=== PATIENT | male | born 2000 | race Caucasian/White ===

== ENCOUNTER 2022-06-25 10:29 | Emergency (ER) | payer OTHER ==
--- OUTSIDE RECORDS SUMMARY | 2022-06-25 10:32 | XMS REPORT | Continuity of Care Document ---
:[address] [facility] t Address [address] [place] [address] [address]. [address]. [address] [place] [address] Care Team Providers Name Role Phone MICA CHILDERS Primary Care Physician Unavailable Salo PAL, Gia Everett Attending Clinician Unavailable OREN GUTIERREZ Attending Clinician Unavailable Only, Ang Db Test Attending Clinician Unavailable Oren Gutierrez MD Attending Clinician Doctor Unassigned, [place] Attending Clinician Unavailable JOAQUIN CRUZ Attending Clinician Unavailable MICA CHILDERS Attending Clinician Unavailable ANDRESSA RODRIGUEZ Attending Clinician Unavailable Payers Payer Name Policy Type Policy Number Effective Date Expiration Date S ource Problems Condition Condition Condition Status Onset Resolution Last Treating Co mments Source Name Details Category Date Date Treatment Clinician Date Acne Acne Disease Active 08-08 ity of 00:00: [address] Seasonal Seasonal Disease Active Unive rs allergies allergies ity of [facility] Allergies, Adverse Reactions, Alerts Allergy Allergy Status Severity Reaction(s) Onset Inactive Treating Comm ents Source Name Type Date Date Clinician NO KNOWN Drug Active Univers ALLERGIE Class ity of S [facility] Social History Social Habit Start Date Stop Date Quantity Comments Source Exposure to Yes [facility] SARS-CoV-2 [facility] (event) Branch Alcohol intake 2020-12-23 2020-12-23 [facility] of 00:00:00 00:00:00 non-drinker of [facility] alcohol [place] (finding) Tobacco use and 2018-08-08 2018-08-08 Never used Universit y of exposure 00:00:00 00:00:00 [facility] Sex Assigned At [birth year] Universit y of 00:00:00 00:00:00 [facility] Smoking Status Start Date Stop Date Source Never smoker [facility] Branch Medications Ordered Filled Start Stop Current Ordering Indication Dosage Frequency Signature Comments Components Source Medication Medication Date Date Medication? Clinician (SIG) Name Name don Yes [id number] 5mL Take 5 mL Univers mine-pseudo 8-10 by mouth 4 it y of ephedrine-D 00:00: (four) [facility] M (BROMFED 00 times Medical DM) 2-30-10 daily as Bran ch mg/5 mL needed for syrup Cough. methylPREDN 2020-0 Yes [id number] Take by Univers ISolone 4 8-10 mouth ity of mg tablets 00:00: [place]-INSTRU [place] 00 CTIONS. Medical follow Branch package directions bromphenira Yes [id number] 5mL Take 5 mL Univers mine-pseudo 8-10 by mouth 4 it y of ephedrine-D 00:00: (four) [facility] M (BROMFED 00 times Medical DM) 2-30-10 daily as Bran ch mg/5 mL needed for syrup Cough. methylPREDN 2020-0 Yes [id number] Take by Univers ISolone 4 8-10 mouth ity of mg tablets 00:00: SEE-INSTRU [place] 00 CTIONS. Medical follow Branch package directions bromphenira Yes [id number] 5mL Take 5 mL Univers mine-pseudo 8-10 by mouth 4 it y of ephedrine-D 00:00: (four) [facility] M (BROMFED 00 times Medical DM) 2-30-10 daily as Bran ch mg/5 mL needed for syrup Cough. methylPREDN 2020-0 Yes [id number] Take by Univers ISolone 4 8-10 mouth ity of mg tablets 00:00: SEE-INSTRU [place] 00 CTIONS. Medical follow Branch package directions MYORISAN Yes 30mg 30 mg 2 Uni vers mg capsule 3-20 (two) ity of 00:00: times [place] 00 daily. Medical Branch MYORISAN Yes 30mg 30 mg 2 Uni vers mg capsule 3-20 (two) ity of 00:00: times [place] 00 daily. Medical Branch MYORISAN Yes 30mg 30 mg 2 Uni vers mg capsule 3-20 (two) ity of 00:00: times [place] 00 daily. Medical Branch Immunizations Ordered Immunization Filled Immunization Date Status Commen ts Source Name Name Meningococcal 2020-04-04 Completed University of Polysaccharide 00:00:00 [place] [facility] (groups A, C, Y and Branc h W-135) conjugate vaccine (MCV4P) Influenza Virus 2020-04-04 Completed Universit y of Vaccine Quad .5 mL IM 00:00:00 [facility] 6+ MO Branch Meningococcal 2020-04-04 Completed University of Polysaccharide 00:00:00 [place] [facility] (groups A, C, Y and Branc h W-135) conjugate vaccine (MCV4P) Influenza Virus 2020-04-04 Completed Universit y of Vaccine Quad .5 mL IM 00:00:00 [facility] 6+ MO Branch Meningococcal 2020-04-04 Completed University of Polysaccharide 00:00:00 [place] [facility] (groups A, C, Y and Branc h W-135) conjugate vaccine (MCV4P) Influenza Virus 2020-04-04 Completed Universit y of Vaccine Quad .5 mL IM 00:00:00 [facility] 6+ MO Branch HPV9 2018-08-08 Completed University of 00:00:00 [facility] Branch HPV9 2018-08-08 Completed University of 00:00:00 [facility] Branch HPV9 2018-08-08 Completed University of 00:00:00 [facility] Branch HPV9 2018-04-11 Completed University of 00:00:00 [facility] Influenza Virus 2018-04-11 Completed Universit y of Vaccine Quad ID [id number] 00:00:00 [facility] Medical YRS Branch HPV9 2018-04-11 Completed University of 00:00:00 [facility] Influenza Virus 2018-04-11 Completed Universit y of Vaccine Quad ID [id number] 00:00:00 [facility] YRS Branch HPV9 2018-04-11 Completed University of 00:00:00 [facility] Influenza Virus 2018-04-11 Completed Universit y of Vaccine Quad ID [id number] 00:00:00 Yared as Medical [facility] Branch HPV9 2018-02-07 Completed University of 00:00:00 [facility] Menhibrix (HIB,MEN 2018-02-07 Completed Univjacquelyn clarky of CY-TT) 00:00:00 [facility] HPV9 2018-02-07 Completed University of 00:00:00 [facility] Menhibrix (HIB,MEN 2018-02-07 Completed Univer sity of CY-TT) 00:00:00 [facility] HPV9 2018-02-07 Completed University of 00:00:00 [facility] Menhibrix (HIB,MEN 2018-02-07 Completed Univer sity of CY-TT) 00:00:00 [facility] Menhibrix (HIB,MEN 2018-01-05 Completed Univer sity of CY-TT) 00:00:00 [facility] Menhibrix (HIB,MEN 2018-01-05 Completed Univer sity of CY-TT) 00:00:00 [facility] Menhibrix (HIB,MEN 2018-01-05 Completed Univer sity of CY-TT) 00:00:00 [facility] TDAP (ADACEL) VACCINE 2013-12-14 Completed Uni versity of 00:00:00 [facility] Meningococcal 2013-12-14 Completed University of Polysaccharide 00:00:00 [place] [facility] (groups A, C, Y and Branc h W-135) conjugate vaccine (MCV4P) TDAP (ADACEL) VACCINE 2013-12-14 Completed Uni versity of 00:00:00 [facility] Meningococcal 2013-12-14 Completed University of Polysaccharide 00:00:00 [place] [facility] (groups A, C, Y and Branc h W-135) conjugate vaccine (MCV4P) TDAP (ADACEL) VACCINE 2013-12-14 Completed Uni versity of 00:00:00 [facility] Meningococcal 2013-12-14 Completed University of Polysaccharide 00:00:00 [place] [facility] (groups A, C, Y and Branc h W-135) conjugate vaccine (MCV4P) Influenza Virus 2009-01-17 Completed Universit y of Vaccine Quad .5 mL IM 00:00:00 [facility] 6+ MO Branch Influenza Virus 2009-01-17 Completed Universit y of Vaccine Quad .5 mL IM 00:00:00 [facility] 6+ MO Branch Influenza Virus 2009-01-17 Completed Universit y of Vaccine Quad .5 mL IM 00:00:00 [facility] 6+ MO Branch Typhoid, Unspecified 2008-06-05 Completed Univ ersity of Formulation 00:00:00 [facility] Typhoid, Unspecified 2008-06-05 Completed Univ ersity of Formulation 00:00:00 [facility] Typhoid, Unspecified 2008-06-05 Completed Univ ersity of Formulation 00:00:00 [facility] DTAP 2005-05-13 Completed University of 00:00:00 [facility] MMR 2005-05-13 Completed University of 00:00:00 [facility] Polio (IPV/OPV) 2005-05-13 Completed Universit y of 00:00:00 [facility] DTAP 2005-05-13 Completed University of 00:00:00 [facility] MMR 2005-05-13 Completed University of 00:00:00 [facility] Polio (IPV/OPV) 2005-05-13 Completed Universit y of 00:00:00 [facility] DTAP 2005-05-13 Completed University of 00:00:00 [facility] MMR 2005-05-13 Completed University of 00:00:00 [facility] Polio (IPV/OPV) 2005-05-13 Completed Universit y of 00:00:00 [facility] DTAP 2002-11-14 Completed University of 00:00:00 [facility] DTAP 2002-11-14 Completed University of 00:00:00 [facility] DTAP 2002-11-14 Completed University of 00:00:00 [facility] MMR 2002-08-07 Completed University of 00:00:00 [facility] MMR 2002-08-07 Completed University of 00:00:00 [facility] MMR 2002-08-07 Completed University of 00:00:00 [facility] DTAP 2001 Completed University of 00:00:00 [facility] HIB 4 Dose Schedule 2001 Completed Unive rsity of 00:00:00 [facility] Hep B, Adol or Pedi 2001 Completed Unive rsity of Dosage 00:00:00 [facility] Polio (IPV/OPV) 2001 Completed Universit y of 00:00:00 [facility] DTAP 2001 Completed University of 00:00:00 [facility] HIB 4 Dose Schedule 2001 Completed Unive rsity of 00:00:00 [facility] Hep B, Adol or Pedi 2001 Completed Unive rsity of Dosage 00:00:00 [facility] Polio (IPV/OPV) 2001 Completed Universit y of 00:00:00 [facility] DTAP 2001 Completed University of 00:00:00 [place] [facility] [place] HIB 4 Dose Schedule 2001 Completed Unive rsity of 00:00:00 [place] [facility] Hep B, Adol or Pedi 2001 Completed Unive rsity of Dosage 00:00:00 [facility] Polio (IPV/OPV) 2001 Completed Universit y of 00:00:00 [facility] Branch DTAP 2001 Completed University of 00:00:00 [facility] HIB 4 Dose Schedule 2001 Completed Unive rsity of 00:00:00 [facility] Branch Hep B, Adol or Pedi 2001 Completed Unive rsity of Dosage 00:00:00 [facility] Polio (IPV/OPV) 2001 Completed Universit y of 00:00:00 [facility] DTAP 2001 Completed University of 00:00:00 [facility] HIB 4 Dose Schedule 2001 Completed Unive rsity of 00:00:00 [place] [facility] Hep B, Adol or Pedi 2001 Completed Unive rsity of Dosage 00:00:00 [facility] Polio (IPV/OPV) 2001 Completed Universit y of 00:00:00 [facility] DTAP 2001 Completed University of 00:00:00 [facility] HIB 4 Dose Schedule 2001 Completed Unive rsity of 00:00:00 [facility] Branch Hep B, Adol or Pedi 2001 Completed Unive rsity of Dosage 00:00:00 [facility] Polio (IPV/OPV) 2001 Completed Universit y of 00:00:00 [facility] Branch DTAP 2001 Completed University of 00:00:00 [facility] HIB 4 Dose Schedule 2001 Completed Unive rsity of 00:00:00 [place] [facility] Hep B, Adol or Pedi 2001 Completed Unive rsity of Dosage 00:00:00 [facility] Polio (IPV/OPV) 2001 Completed Universit y of 00:00:00 [facility] Branch DTAP 2001 Completed University of 00:00:00 [facility] HIB 4 Dose Schedule 2001 Completed Unive rsity of 00:00:00 [facility] Hep B, Adol or Pedi 2001 Completed Unive rsity of Dosage 00:00:00 [facility] Polio (IPV/OPV) 2001 Completed Universit y of 00:00:00 [facility] DTAP 2001 Completed University of 00:00:00 [facility] HIB 4 Dose Schedule 2001 Completed Unive rsity of 00:00:00 [facility] Hep B, Adol or Pedi 2001 Completed Unive rsity of Dosage 00:00:00 [facility] Polio (IPV/OPV) 2001 Completed Universit y of 00:00:00 [facility] Typhoid, Unspecified 2001 Completed Univ ersity of Formulation 00:00:00 [facility] Pneumococcal 7 2001 Completed University of Conjugate, PCV7 00:00:00 [place] [facility] ical (Prevnar7) Branch Typhoid, Unspecified 2001 Completed Univ ersity of Formulation 00:00:00 [facility] Pneumococcal 7 2001 Completed University of Conjugate, PCV7 00:00:00 [facility] ical (Prevnar7) Branch Typhoid, Unspecified 2001 Completed Univ ersity of Formulation 00:00:00 [facility] Pneumococcal 7 2001 Completed University of Conjugate, PCV7 00:00:00 [facility] ical (Prevnar7) [place] Procedures Procedure Date / Time Performed Performing Clinician [facility] e ASSIGNMENT OF BENEFITS 2021-05-19 16:29:27 Doctor Unassigned, No [facility] Encounters Start End Encounter Admission Attending Care Care Encounter Source Date/Time Date/Time Type Type Clinicians Facility Department ID 2021-05-20 2021-05-20 Telephone LIZZIE Leong [id number] [facility] 00:00:00 00:00:00 Gia [place] [id number] ity [facility] [id number] Yared as [id number] [address] 2021-05-19 2021-05-19 Outpatient Juan Luis GUTIERREZ [facility] [id number] Univers 10:20:00 11:01:55 OREN diaz [facility] 2021-05-19 2021-05-19 Laboratory Only, Ang Db Test [facility] [id number] Univers 10:20:00 10:35:00 Only Oren Gutierrez [facility] [id number] ity of [place] [id number] Yared as FRACISCO?BLEA [phone] Ar dical [address] MEDICAL OFFICE BUILDING 2021-05-19 2021-05-19 Orders Doctor LIZZIE [id number] Univers 00:00:00 00:00:00 Only Unassigned, CELENA [id number] ity of [place] [facility] [id number] Yared as [phone] [address] 2020-12-23 2020-12-23 Outpatient R NANCY [facility] [id number] Univers 10:30:00 10:30:00 JOAQUIN diaz [facility] 2020-04-04 2020-04-04 Outpatient R NANCY [facility] [id number] Univers 13:30:00 13:30:00 JOAQUIN diaz [facility] 2019-08-11 2019-08-11 Outpatient R LISETH [facility] [id number] Univers 14:30:00 14:30:00 MICA coulter [facility] 2019-05-01 2019-05-01 Outpatient R MICHAEL [facility] [id number] Univers 12:20:00 13:08:24 ANDRESSA coulter [facility] Results This patient has no known results.
--- NOTE | 2022-06-25 11:18 | EDPHYS ---
Physician Documentation [facility] Name: Best Rangel Age: 22 yrs Sex: Male : 2000 Arrival Date: 06/25/2022 Time: 10:35 Bed 10 Private MD: ED Physician Nacho Fuentes HPI: 06/25 11:16 This 22 yrs old Male presents to ER via Ambulatory with complaints of Abscess, pm1 Toothache. 11:16 The patient presents with pain, swelling. The problem is located in the upper right pm1 first bicuspid. Onset: The symptoms/episode began/occurred yesterday. Duration: The symptoms are continuous. Modifying factors: The symptoms are alleviated by prescription meds, Tylenol #3. Associated signs and symptoms: Pertinent positives: swelling, facial. Severity of symptoms: in the emergency department the symptoms are actually worse. The patient has not experienced similar symptoms in the past. The patient has been recently seen by a physician: a dentist, yesterday, with similar presenting complaints, was given a prescription for pain medications, was given a prescription for antibiotics, tylenol #3 and clindamycin. Historical: - Allergies: 10:57 No Known Allergies; iw - Home Meds: 10:57 None [Active]; iw - PMHx: 10:57 None; iw - PSHx: 10:57 None; iw ROS: 11:16 Constitutional: Negative for fever, chills, and weight loss. pm1 11:16 Neck: Negative for injury, pain, and swelling, Cardiovascular: Negative for chest pain, palpitations, and edema, Respiratory: Negative for shortness of breath, cough, wheezing, and pleuritic chest pain, Skin: Negative for injury, rash, and discoloration, Neuro: Negative for headache, weakness, numbness, tingling, and seizure. 11:16 ENT: Positive for dental pain, Negative for sore throat. 11:16 All other systems are negative. Exam: 11:16 Constitutional: This is a well developed, well nourished patient who is awake, alert, pm1 and in no acute distress. Head/Face: Normocephalic, atraumatic. 11:16 Skin: Warm, dry with normal turgor. Normal color with no rashes, no lesions, and no evidence of cellulitis. 11:16 Eyes: Exam is negative for acute changes, Periorbital structures: no acute changes, no cellulitis, no swelling, Extraocular movements: no acute changes, Conjunctiva: no acute changes, no injection. 11:16 ENT: Dental exam: abscess, that is mild, specifically in the upper right first bicuspid, gum swelling, that is mild, specifically in the upper right first bicuspid, pain, that is mild, specifically in the upper right first bicuspid (#5), Voice: no acute changes, negative for trismus. 11:16 Cardiovascular: Exam negative for acute changes. 11:16 Respiratory: Exam negative for acute changes, respiratory distress, shortness of breath. 11:16 Neuro: Exam negative for acute changes, Orientation: is normal, Mentation: is normal, Motor: is normal, moves all fours. Vital Signs: 10:57 BP 134 / 93; Pulse 63; Resp 16; Pulse Ox 99% on R/A; iw MDM: 10:36 Patient medically screened. pm1 10:58 Data reviewed: vital signs. pm1 11:16 Counseling: I had a detailed discussion with the patient and/or guardian regarding: the pm1 historical points, exam findings, and any diagnostic results supporting the discharge/admit diagnosis, the need for outpatient follow up, for definitive care, a dentist, to return to the emergency department if symptoms worsen or persist or if there are any questions or concerns that arise at home. 11:16 Management of patient was discussed with the following: Contacted dental office where pm1 patient is going to get evaluation and treatment of his dental abscess and root canal, spoke with Rachana and discussed patient's presentation. Patient can keep his appointment at 1400. Offered the patient pain medication in the ER, he refused because his codeine prescription is effective but he would like to get lunch with his medication. Discussed my conversation with Rachana to the patient and family and gave them reassurance that he can keep his appointment at 1400. Administered Medications: No medications were administered Disposition: 11:27 Co-signature as Attending Physician, Nacho Fuentes MD I reviewed the patient's care rt provided by the Advanced Practice Provider and agree with the diagnosis and treatment plan. Disposition Summary: 06/25/22 11:17 Discharge Ordered Location: Home pm1 Problem: new pm1 Symptoms: have improved pm1 Condition: Stable pm1 Diagnosis - Periapical abscess without sinus pm1 Followup: pm1 - With: Emergency Department - When: As needed - Reason: Worsening of condition Followup: pm1 - With: Private Physician - When: Today - Reason: as scheduled at 1400 Discharge Instructions: - Discharge Summary Sheet pm1 - Dental Abscess pm1 - Dental Pain pm1 Forms: - Medication Reconciliation Form pm1 - Thank You Letter pm1 - Antibiotic Education pm1 - Prescription Opioid Use pm1 Signatures: Sherlyn Her RN RN iw Vern Santiago NP [employer] INSTALLER pm1 Nacho Fuentes MD MD rt
--- NOTE | 2022-06-25 11:18 | ER ---
Nurse's Notes 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 Coronavirus screen: At this time, the client does not indicate any symptoms associated with coronavirus-19. Ebola Screen: Patient negative for fever greater than or equal to 101.5 degrees Fahrenheit, and additional compatible Ebola Virus Disease symptoms Patient denies exposure to infectious person. Patient denies travel to an Ebola-affected area in the 21 days before illness onset. No symptoms or risks identified at this time. Risk Assessment: Do you want to hurt yourself or someone else? Patient reports no desire to harm self or others. Onset of symptoms was June 25, 2022. 10:56 Method Of Arrival: Ambulatory iw 10:56 Acuity: WILLY 4 iw 10:57 Initial Sepsis Screen: Does the patient meet any 2 criteria? No. Patient's initial iw sepsis screen is negative. Does the patient have a suspected source of infection? No. Patient's initial sepsis screen is negative. Historical: - Allergies: 10:57 No Known Allergies; iw - Home Meds: 10:57 None [Active]; iw - PMHx: 10:57 None; iw - PSHx: 10:57 None; iw Screenin:07 [facility] ED Fall Risk Assessment (Adult) History of falling in the last 3 months, iw including since admission No falls in past 3 months (0 pts). Abuse screen: Denies threats or abuse. Denies injuries from another. Nutritional screening: No deficits noted. Tuberculosis screening: No symptoms or risk factors identified. Assessment: 11:06 General: Appears in no apparent distress. Behavior is calm, cooperative. Pain: iw Complains of pain in right cheek and right jaw. Neuro: Level of Consciousness is awake, alert, obeys commands, Oriented to person, place, time, situation, Moves all extremities. Full function. EENT: Derm: Skin is intact, is healthy with good turgor. Vital Signs: 10:57 BP 134 / 93; Pulse 63; Resp 16; Pulse Ox 99% on R/A; iw ED Course: 10:35 Patient arrived in ED. am2 10:36 Vern Santiago NP is PHCP. pm1 10:36 Nacho Fuentes MD is Attending Physician. pm1 10:56 Sherlyn Her RN is Primary Nurse. iw 10:57 Triage completed. iw 10:57 Arm band placed on. iw 11:06 No provider procedures requiring assistance completed. Patient did not have IV access iw during this emergency room visit. Administered Medications: No medications were administered Outcome: 11:17 Discharge ordered by . pm1 11:22 Patient left the ED. iw Signatures: Sherlyn Her RN RN iw Vern Santiago NP RN CLINICAL pm1 Sabrina Thorpe am2
[2022-06-25 11:34] VITALS: BP 134/93; O2SAT 99
== END 2022-06-25 11:22 | disposition home or self-care (01) ==
LOC: ER 10:29
DX: K04.7 Periapical abscess without sinus (principal)
CPT/HCPCS: 99281

== ENCOUNTER 2022-12-28 00:41 | Emergency (ER) | payer OTHER, BC ==
--- OUTSIDE RECORDS SUMMARY | 2022-12-28 00:44 | XMS REPORT | Continuity of Care Document ---
:2000 Author Organization [facility] t Address [address] [facility] [place] [address] Care Team Providers Name Role Phone MICA CHILDERS Primary Care Physician Unavailable Salo PAL, Gia Everett Attending Clinician Unavailable OREN GUTIERREZ Attending Clinician Unavailable Only, Ang Db Test Attending Clinician Unavailable Oren Gutierrez MD Attending Clinician Doctor Unassigned, Donora Attending Clinician Unavailable JOAQUIN CRUZ Attending Clinician Unavailable MICA CHILDERS Attending Clinician Unavailable ANDRESSA RODRIGUEZ Attending Clinician Unavailable Payers Payer Name Policy Type Policy Number Effective Date Expiration Date S ource Problems Condition Condition Condition Status Onset Resolution Last Treating Co mments Source Name Details Category Date Date Treatment Clinician Date Acne Acne Disease Active 08-08 ity of 00:00: [address] Seasonal Seasonal Disease Active Unive rs allergies allergies ity [facility]ly [facility] Allergies, Adverse Reactions, Alerts Allergy Allergy Status Severity Reaction(s) Onset Inactive Treating Comm ents Source Name Type Date Date Clinician NO KNOWN Drug Active Univers ALLERGIE Class ity of [facility] Social History Social Habit Start Date Stop Date Quantity Comments Source Exposure to Yes [facility] SARS-CoV-2 [facility] (event) Branch Alcohol intake 2020-12-23 2020-12-23 Current [facility] 00:00:00 00:00:00 non-drinker of [facility] alcohol [place] (finding) Tobacco use and 2018-08-08 2018-08-08 Never used Universit y of exposure 00:00:00 00:00:00 [facility] Sex Assigned At [birth year] Universit y of 00:00:00 00:00:00 [facility] Smoking Status Start Date Stop Date Source Never smoker [facility] Medications Ordered Filled Start Stop Current Ordering Indication Dosage Frequency Signature Comments Components Source Medication Medication Date Date Medication? Clinician (SIG) Name Name don Yes [id number] 5mL Take 5 mL Univers mine-pseudo 8-10 by mouth 4 it y of ephedrine-D 00:00: (four) Jenna Espinoza (BROMFED 00 times Medical DM) 2-30-10 daily as Bran ch mg/5 mL needed for syrup Cough. methylPREDN Yes [id number] Take by Univers ISolone 4 8-10 mouth ity of mg tablets 00:00: [place]-INSTRU [place] 00 CTIONS. Medical follow Branch package directions bromphenira Yes [id number] 5mL Take 5 mL Univers mine-pseudo 8-10 by mouth 4 it y of ephedrine-D 00:00: (four) Jenna Espinoza (BROMFED 00 times Medical DM) 2-30-10 daily as Bran ch mg/5 mL needed for syrup Cough. methylPREDN Yes [id number] Take by Univers ISolone 4 8-10 mouth ity of mg tablets 00:00: SEE-INSTRU [place] 00 CTIONS. Medical follow Branch package directions bromphenira Yes [id number] 5mL Take 5 mL Univers mine-pseudo 8-10 by mouth 4 it y of ephedrine-D 00:00: (four) Jenna Espinoza (BROMFED 00 times Medical DM) 2-30-10 daily as Bran ch mg/5 mL needed for syrup Cough. methylPREDN Yes [id number] Take by Univers ISolone 4 8-10 mouth [...] capsule 3-20 (two) ity of 00:00: times [place] 00 daily. Medical Branch Immunizations Ordered Immunization Filled Immunization Date Status Commen ts Source Name Name Meningococcal 2020-04-04 Completed University of Polysaccharide 00:00:00 [place] Medi jeremy (groups A, C, Y and Branc h W-135) conjugate vaccine (MCV4P) Influenza Virus 2020-04-04 Completed Universit y of Vaccine Quad .5 mL IM 00:00:00 [facility] 6+ [place] Branch Meningococcal 2020-04-04 Completed University of Polysaccharide 00:00:00 [place] Medi jeremy (groups A, C, Y and Branc h W-135) conjugate vaccine (MCV4P) Influenza Virus 2020-04-04 Completed Universit y of Vaccine Quad .5 mL IM 00:00:00 [facility] 6+ [place] [facility] Meningococcal 2020-04-04 Completed University of Polysaccharide 00:00:00 [place] Medi jeremy (groups A, C, Y and Branc h W-135) conjugate vaccine (MCV4P) Influenza Virus 2020-04-04 Completed Universit y of Vaccine Quad .5 mL IM 00:00:00 [facility] 6+ [place] Branch HPV9 2018-08-08 Completed University of 00:00:00 [facility] Branch HPV9 2018-08-08 Completed University of 00:00:00 [facility] Branch HPV9 2018-08-08 Completed University of 00:00:00 [facility] Branch HPV9 2018-04-11 Completed University of 00:00:00 [facility] Influenza Virus 2018-04-11 Completed Universit y of Vaccine Quad ID [id number] 00:00:00 Yared as Medical YRS Branch HPV9 2018-04-11 Completed University of 00:00:00 [facility] Influenza Virus 2018-04-11 Completed Universit y of Vaccine Quad ID [id number] 00:00:00 [facility] as Medical YRS Branch HPV9 2018-04-11 Completed University of 00:00:00 [facility] Influenza Virus 2018-04-11 Completed Universit y of Vaccine Quad ID [id number] 00:00:00 [facility] as Medical YRS Branch HPV9 2018-02-07 Completed University of 00:00:00 [facility] Menhibrix (HIB,MEN 2018-02-07 Completed Univer sity of CY-TT) 00:00:00 [facility] HPV9 2018-02-07 Completed University of 00:00:00 [facility] Menhibrix (HIB,MEN 2018-02-07 Completed Univer sity of CY-TT) 00:00:00 [facility] HPV9 2018-02-07 Completed University of 00:00:00 [facility] Menhibrix (HIB,MEN 2018-02-07 Completed Univer sity of CY-TT) 00:00:00 [facility] Menhibrix (HIB,MEN 2018-01-05 Completed Univer sity of CY-TT) 00:00:00 [facility] Menhibrix (HIB,MEN 2018-01-05 Completed Univer sity of CY-TT) 00:00:00 [facility] Menhibrix (HIB,MEN 2018-01-05 Completed Univer sity of CY-TT) 00:00:00 [facility] TDAP (ADACEL) VACCINE 2013-12-14 Completed Uni versity of 00:00:00 [facility] Meningococcal 2013-12-14 Completed University of Polysaccharide 00:00:00 [place] Medi jeremy (groups A, C, Y and Branc h W-135) conjugate vaccine (MCV4P) TDAP (ADACEL) VACCINE 2013-12-14 Completed Uni versity of 00:00:00 [facility] Meningococcal 2013-12-14 Completed University of Polysaccharide 00:00:00 [place] Medi jeremy (groups A, C, Y and Branc h W-135) conjugate vaccine (MCV4P) TDAP (ADACEL) VACCINE 2013-12-14 Completed Uni versity of 00:00:00 [facility] Meningococcal 2013-12-14 Completed University of Polysaccharide 00:00:00 [place] Medi jeremy (groups A, C, Y and [...] 2008-06-05 Completed Univ ersity of Formulation 00:00:00 [facility] Typhoid, Unspecified 2008-06-05 Completed Univ ersity of Formulation 00:00:00 [facility] Typhoid, Unspecified 2008-06-05 Completed Univ ersity of Formulation 00:00:00 [facility] DTAP 2005-05-13 Completed University of 00:00:00 [facility] MMR 2005-05-13 Completed University of 00:00:00 [facility] Polio (IPV/OPV) 2005-05-13 Completed Universit y of 00:00:00 [facility] DTAP 2005-05-13 Completed University of 00:00:00 [facility] MMR 2005-05-13 Completed University of 00:00:00 [facility] Polio (IPV/OPV) 2005-05-13 Completed Universit y of 00:00:00 [facility] DTAP 2005-05-13 Completed University of 00:00:00 [facility] MMR 2005-05-13 Completed University of 00:00:00 [facility] Polio (IPV/OPV) 2005-05-13 Completed Universit y of 00:00:00 [facility] DTAP 2002-11-14 Completed University of 00:00:00 [facility] DTAP 2002-11-14 Completed University of 00:00:00 [facility] DTAP 2002-11-14 Completed University of 00:00:00 [facility] MMR 2002-08-07 Completed University of 00:00:00 [facility] MMR 2002-08-07 Completed University of 00:00:00 [facility] MMR 2002-08-07 Completed University of 00:00:00 [facility] DTAP 2001 Completed University of 00:00:00 [facility] HIB 4 Dose Schedule 2001 Completed Unive rsity of 00:00:00 [facility] Hep B, Adol or Pedi 2001 Completed Unive rsity of Dosage 00:00:00 [facility] Polio (IPV/OPV) 2001 Completed Universit y of 00:00:00 [facility] DTAP 2001 Completed University of 00:00:00 [facility] HIB 4 Dose Schedule 2001 Completed Unive rsity of 00:00:00 [facility] Hep B, Adol or Pedi 2001 Completed Unive rsity of Dosage 00:00:00 [facility] Polio (IPV/OPV) 2001 Completed Universit y of 00:00:00 [facility] DTAP 2001 Completed University of 00:00:00 [facility] HIB 4 Dose Schedule 2001 Completed Unive rsity of 00:00:00 [place] [facility] Hep B, Adol or Pedi 2001 Completed Unive rsity of Dosage 00:00:00 [facility] Polio (IPV/OPV) 2001 Completed Universit y of 00:00:00 [facility] Branch DTAP 2001 Completed University of 00:00:00 [facility] HIB 4 Dose Schedule 2001 Completed Unive rsity of 00:00:00 [facility] Branch Hep B, Adol or Pedi 2001 Completed Unive rsity of Dosage 00:00:00 [facility] Polio (IPV/OPV) 2001 Completed Universit y of 00:00:00 [facility] DTAP 2001 Completed University of 00:00:00 [facility] HIB 4 Dose Schedule 2001 Completed Unive rsity of 00:00:00 [facility] Branch Hep B, Adol or Pedi 2001 Completed Unive rsity of Dosage 00:00:00 [facility] Polio (IPV/OPV) 2001 Completed Universit y of 00:00:00 [facility] DTAP 2001 Completed University of 00:00:00 [facility] HIB 4 Dose Schedule 2001 Completed Unive rsity of 00:00:00 [facility] Branch Hep B, Adol or Pedi 2001 Completed Unive rsity of Dosage 00:00:00 [facility] Polio (IPV/OPV) 2001 Completed Universit y of 00:00:00 [facility] DTAP 2001 Completed University of 00:00:00 [facility] HIB 4 Dose Schedule 2001 Completed Unive rsity of 00:00:00 [place] [facility] Hep B, Adol or Pedi 2001 Completed Unive rsity of Dosage 00:00:00 [facility] Polio (IPV/OPV) 2001 Completed Universit y of 00:00:00 [facility] Branch DTAP 2001 Completed University of 00:00:00 [facility] HIB 4 Dose Schedule 2001 Completed Unive rsity of 00:00:00 [facility] Hep B, Adol or Pedi 2001 Completed Unive rsity of Dosage 00:00:00 [facility] Polio (IPV/OPV) 2001 Completed Universit y of 00:00:00 [facility] DTAP 2001 Completed University of 00:00:00 [facility] HIB 4 Dose Schedule 2001 Completed Unive rsity of 00:00:00 [facility] Hep B, Adol or Pedi 2001 Completed Unive rsity of Dosage 00:00:00 [facility] Polio (IPV/OPV) 2001 Completed Universit y of 00:00:00 [facility] Typhoid, Unspecified 2001 Completed Univ ersity of Formulation 00:00:00 [facility] Pneumococcal 7 2001 Completed University of Conjugate, PCV7 00:00:00 [place] [facility] ical (Prevnar7) Branch Typhoid, Unspecified 2001 Completed Univ ersity of Formulation 00:00:00 [facility] Pneumococcal 7 2001 Completed University of Conjugate, PCV7 00:00:00 [facility] ical (Prevnar7) Branch Typhoid, Unspecified 2001 Completed Univ ersity of Formulation 00:00:00 [facility] Pneumococcal 7 2001 Completed University of Conjugate, PCV7 00:00:00 [facility] ical (Prevnar7) [place] Procedures Procedure Date / Time Performed Performing Clinician [facility] e ASSIGNMENT OF BENEFITS 2021-05-19 16:29:27 Doctor Unassigned, No [facility] Branch Encounters Start End Encounter Admission Attending Care Care Encounter Source Date/Time Date/Time Type Type Clinicians Facility Department ID 2021-05-20 2021-05-20 Telephone LIZZIE Leong [id number] [facility] 00:00:00 00:00:00 [facility] [place] [id number] [id number] Yared as [id number] [place] [address] Branch 2021-05-19 2021-05-19 Outpatient Juan Luis GUTIERREZ [facility] [id number] Univers 10:20:00 11:01:55 OREN diaz [facility] 2021-05-19 2021-05-19 Laboratory Only, Ang Db Test [facility] [id number] Univers 10:20:00 10:35:00 Only Oren Gutierrez [id number] ity of [place] [id number] Yared as FRACISCO?BLEA [id number] Ar dical [address] MEDICAL OFFICE BUILDING 2021-05-19 2021-05-19 Orders Doctor LIZZIE [id number] Univers 00:00:00 00:00:00 Only Unassigned, CELENA [id number] [facility] [id number] Yared as [id number] [address] 2020-12-23 2020-12-23 Outpatient Juan Luis CRUZ [facility] [id number] Univers 10:30:00 10:30:00 JOAQUIN diaz [facility] 2020-04-04 2020-04-04 Outpatient Juan Luis CRUZ [facility] [id number] Univers 13:30:00 13:30:00 JOAQUIN diaz [facility] 2019-08-11 2019-08-11 Outpatient Juan Luis CHILDERS [facility] [id number] Univers 14:30:00 14:30:00 MICA coulter [facility] 2019-05-01 2019-05-01 Outpatient Juan Luis RODRIGUEZ [facility] [id number] Univers 12:20:00 13:08:24 ANDRESSA coulter [facility] Results This patient has no known results.
--- NOTE | 2022-12-28 01:05 | EDPHYS ---
Physician Documentation [facility] Name: Best Rangel Age: 22 yrs Sex: Male : 2000 Arrival Date: 12/28/2022 Time: 00:41 Bed 17 Private MD: ED Physician Nacho Fuentes HPI: 12/28 02:52 This 22 yrs old Male presents to ER via Ambulatory with complaints of Toothache. sb4 02:52 The patient presents with pain, redness, swelling, ulceration. The problem is located sb4 in the right buccal mucosa. Onset: The symptoms/episode began/occurred today. Duration: The symptoms are continuous, and are unchanged since they started. Modifying factors: The symptoms are alleviated by nothing, the symptoms are aggravated by nothing. Associated signs and symptoms: The patient has no apparent associated signs or symptoms. The patient has experienced similar episodes in the past, a few times. patient states he had a root canal about 6 months ago and has had issues with infections/abscesses ever since. he states he felt an abscess starting to form this evening and came in to be evaluated. denies fever, difficulty swallowing, increased secretions, pain out of proportion . Historical: - Allergies: 00:58 No Known Allergies; vc1 - Home Meds: 00:58 None [Active]; vc1 - PMHx: 00:58 None; vc1 - PSHx: 00:58 None; vc1 - Immunization history:: Client reports having NOT received the Covid vaccine. - Social history:: Smoking status: Patient denies any tobacco usage or history of. ROS: 02:52 Constitutional: Negative for fever, chills, and weight loss. sb4 02:52 ENT: Positive for pain roof of mouth and right upper molar. 02:52 All other systems are negative. Exam: 02:52 Constitutional: This is a well developed, well nourished patient who is awake, alert, sb4 and in no acute distress. 02:52 ENT: Mouth: Oral mucosa: on the right buccal mucosa, inflammation, small abscess forming. Vital Signs: 00:55 BP 129 / 59; Pulse 55; Resp 17; Temp 97.7; Pulse Ox 99% ; Pain 6/10; vc1 00:55 Pain Scale: Adult vc1 MDM: 00:51 Patient medically screened. sb4 02:52 Differential diagnosis: gingivitis, dental abscess, aphthous ulcers, acute necrotizing sb4 ulcerative gingivitis. Data reviewed: vital signs, nurses notes, and as a result, I will discharge patient. Historians other than the Patient: Parent: both mother and father. Counseling: I had a detailed discussion with the patient and/or guardian regarding: the historical points, exam findings, and any diagnostic results supporting the discharge/admit diagnosis, the need for outpatient follow up, a dentist. Administered Medications: 01:16 Drug: Ketorolac IM 30 mg Route: IM; Site: right deltoid; lg3 01:16 Follow up: Response: No adverse reaction lg3 01:16 Drug: Amoxicillin PO 875 mg Route: PO; lg3 01:16 Follow up: Response: No adverse reaction lg3 Disposition: 03:13 Co-signature as Attending Physician, Nacho Fuentes MD I reviewed the patient's care rt provided by the Advanced Practice Provider and agree with the diagnosis and treatment plan. Disposition Summary: 12/28/22 01:04 Discharge Ordered Location: Home sb4 Problem: new sb4 Symptoms: have improved sb4 Condition: Stable sb4 Diagnosis - Dental Abscess sb4 Followup: sb4 - With: Jose Alfredo Owusu DDS - When: 1 - 2 days - Reason: Recheck today's complaints, Re-evaluation by your physician Discharge Instructions: - Discharge Summary Sheet sb4 - Dental Abscess, [id number] sb4 Forms: - Medication Reconciliation Form sb4 - Thank You Letter sb4 - Antibiotic Education sb4 - Prescription Opioid Use sb4 - Patient Portal Instructions sb4 - Leadership Thank You Letter sb4 Prescriptions: - Clindamycin HCl 300 mg Oral Capsule - take 1 capsule by ORAL route every 8 hours for 10 days; 30 capsule; Refills: 0, sb4 Product Selection Permitted - Medrol ([place]) 4 mg Oral Tablets, Dose Pack - take 1 tablet by ORAL route as directed - follow package instructions; 1 sb4 packet; Refills: 0, Product Selection Permitted Signatures: Sunshine Morales RN RN lg3 Ruby Chen RN RN vc1 Katherine Hutchison PA-C PA-C sb4 Nacho Fuentes MD MD rt
--- NOTE | 2022-12-28 01:05 | ER ---
Nurse's Notes [facility] Name: Best Rangel Age: 22 yrs Sex: Male : 2000 Arrival Date: 12/28/2022 Time: 00:41 Bed 17 Private MD: Diagnosis: Dental Abscess Presentation: 12/28 00:55 Chief complaint: Patient states: I have an abscess on the roof of my mouth and the vc1 upper right side. Coronavirus screen: Vaccine status: Patient reports being unvaccinated. Client denies travel out of the [place] in the last 14 days. At this time, the client does not indicate any symptoms associated with coronavirus-19. Ebola Screen: Patient negative for fever greater than or equal to 101.5 degrees Fahrenheit, and additional compatible Ebola Virus Disease symptoms Patient denies exposure to infectious person. Patient denies travel to an Ebola-affected area in the 21 days before illness onset. No symptoms or risks identified at this time. Initial Sepsis Screen: Does the patient meet any 2 criteria? No. Patient's initial sepsis screen is negative. Does the patient have a suspected source of infection? No. Patient's initial sepsis screen is negative. Risk Assessment: Do you want to hurt yourself or someone else? Patient reports no desire to harm self or others. Onset of symptoms was December 27, 2022 at 14:00. 00:55 Method Of Arrival: Ambulatory vc1 00:55 Acuity: WILLY 4 vc1 Triage Assessment: 01:02 General: Appears in no apparent distress. uncomfortable, Behavior is calm, cooperative, vc1 appropriate for age. Pain: Complains of pain in mouth Pain does not radiate. Pain currently is 6 out of 10 on a pain scale. at worst was 9 out of 10 on a pain scale. Quality of pain is described as dull, sharp, stabbing, pulsating, Pain began today 1400. EENT: No deficits noted. No signs and/or symptoms were reported regarding the EENT system. Reports pain in mouth. Neuro: Level of Consciousness is awake, alert, obeys commands, Oriented to person, place, time, situation, Appropriate for age. Cardiovascular: No deficits noted. Respiratory: Airway is patent Respiratory effort is even, unlabored, Respiratory pattern is regular, symmetrical. GI: No deficits noted. No signs and/or symptoms were reported involving the gastrointestinal system. : No deficits noted. No signs and/or symptoms were reported regarding the genitourinary system. Derm: No deficits noted. No signs and/or symptoms reported regarding the dermatologic system. Musculoskeletal: No deficits noted. No signs and/or symptoms reported regarding the musculoskeletal system. Historical: - Allergies: 00:58 No Known Allergies; vc1 - Home Meds: 00:58 None [Active]; vc1 - PMHx: 00:58 None; vc1 - PSHx: 00:58 None; vc1 - Immunization history:: Client reports having NOT received the Covid vaccine. - Social history:: Smoking status: Patient denies any tobacco usage or history of. Screenin:04 [facility] ED Fall Risk Assessment (Adult) History of falling in the last 3 months, vc1 including since admission No falls in past 3 months (0 pts) Confusion or Disorientation No (0 pts) Intoxicated or Sedated No (0 pts) Impaired Gait No (0 pts) Mobility Assist Device Used No (0 pt) Altered Elimination No (0 pt) Score/Fall Risk Level 0 - 2 = Low Risk Oriented to surroundings, Maintained a safe environment, Educated pt \T\ family on fall prevention, incl call for assistance when getting out of bed. Abuse screen: Denies threats or abuse. Nutritional screening: No deficits noted. Tuberculosis screening: No symptoms or risk factors identified. Assessment: 01:05 General: Appears in no apparent distress. comfortable, Behavior is calm, cooperative. lg3 Pain: Complains of pain in mouth Pain currently is 7 out of 10 on a pain scale. Neuro: No deficits noted. Sharp Agitation-Sedation Scale (RASS): 0 - Alert and Calm Level of Consciousness is awake, alert, obeys commands, Oriented to person, place, time, situation. Cardiovascular: No deficits noted. Denies chest pain, shortness of breath, Capillary refill < 3 seconds Clubbing of nail beds is absent JVD is absent Patient's skin is warm and dry. Respiratory: No deficits noted. Airway is patent Respiratory effort is even, unlabored, Respiratory pattern is regular, symmetrical. GI: No deficits noted. No signs and/or symptoms were reported involving the gastrointestinal system. Abdomen is flat, non-distended. : No deficits noted. No signs and/or symptoms were reported regarding the genitourinary system. EENT: No deficits noted. Oral mucosa is moist. Reports pain in mouth. Derm: No deficits noted. No signs and/or symptoms reported regarding the dermatologic system. Skin is intact, is healthy with good turgor, Skin is dry, Skin is normal, Skin temperature is warm. Musculoskeletal: No deficits noted. No signs and/or symptoms reported regarding the musculoskeletal system. Circulation, motion, and sensation intact. Range of motion: intact in all extremities. Vital Signs: 00:55 BP 129 / 59; Pulse 55; Resp 17; Temp 97.7; Pulse Ox 99% ; Pain 6/10; vc1 00:55 Pain Scale: Adult vc1 ED Course: 00:45 Patient arrived in ED. ag3 00:51 Katherine Hutchison PA-C [facility]. sb4 00:51 Nacho Fuentes MD is Attending Physician. sb4 00:58 Triage completed. vc1 01:00 Arm band placed on right wrist. vc1 01:02 Jose Alfredo Owusu DDS is Referral Physician. sb4 01:04 Patient has correct armband on for positive identification. Bed in low position. Pulse vc1 ox on. NIBP on. 01:05 Sunshine Morales, RN is Primary Nurse. lg3 01:05 Door closed. Noise minimized. Warm blanket given. Family accompanied patient. lg3 01:16 No provider procedures requiring assistance completed. Patient did not have IV access lg3 during this emergency room visit. Administered Medications: 01:16 Drug: Ketorolac IM 30 mg Route: IM; Site: right deltoid; lg3 01:16 Follow up: Response: No adverse reaction lg3 01:16 Drug: Amoxicillin PO 875 mg Route: PO; lg3 01:16 Follow up: Response: No adverse reaction lg3 Medication: 01:04 VIS not applicable for this client. vc1 Outcome: 01:04 Discharge ordered by . sb4 01:16 Discharged to home ambulatory. lg3 01:16 Condition: stable 01:16 Discharge instructions given to patient, Instructed on discharge instructions, follow up and referral plans. medication usage, Demonstrated understanding of instructions, follow-up care, medications, Prescriptions given X 2. 01:16 Patient left the ED. lg3 Signatures: Ronel Gonzalez ag3 Sunshine Morales, KAE RN lg3 Ruby Chen RN RN vc1 Katherine Hutchison, PA-C PA-C sb4
[2022-12-28] MEDS ORDERED: AMOX/K CLAV 875 MG TAB ONE (01:20)
[2022-12-28] MEDS ORDERED: KETOROLAC 30 MG/ML INJ ONE (01:20)
[2022-12-28 01:21] VITALS: BP 129/59; TEMP 97.7; O2SAT 99
== END 2022-12-28 01:16 | disposition home or self-care (01) ==
LOC: ER 00:41
DX: K04.7 Periapical abscess without sinus (principal); K08.89 Other specified disorders of teeth and supporting structures

== ENCOUNTER 2022-12-28 20:33 | Emergency (ER) | payer OTHER, BC ==
--- OUTSIDE RECORDS SUMMARY | 2022-12-28 20:36 | XMS REPORT | Continuity of Care Document ---
:2000 Author Organization [facility] t Address [address] [place] [address] Care Team Providers Name Role Phone MICA CHILDERS Primary Care Physician Unavailable Salo PAL, Gia Everett Attending Clinician Unavailable OREN GUTIERREZ Attending Clinician Unavailable Only, Ang Db Test Attending Clinician Unavailable Oren Gutierrez MD Attending Clinician Doctor Unassigned, [place] Attending Clinician Unavailable JOAQUIN CRUZ Attending Clinician Unavailable MICA CHILDERS Attending Clinician Unavailable ANDRESSA RODRIGUEZ Attending Clinician Unavailable Payers Payer Name Policy Type Policy Number Effective Date Expiration Date S ource Problems Condition Condition Condition Status Onset Resolution Last Treating Co mments Source Name Details Category Date Date Treatment Clinician Date Acne Acne Disease Active 08-08 ity of 00:00: [address] Seasonal Seasonal Disease Active Unive rs allergies allergies ity [facility] Allergies, Adverse Reactions, Alerts Allergy Allergy Status Severity Reaction(s) Onset Inactive Treating Comm ents Source Name Type Date Date Clinician NO KNOWN Drug Active Univers ALLERGIE Class ity of [facility] Social History Social Habit Start Date Stop Date Quantity Comments Source Exposure to Yes [facility] SARS-CoV-2 [facility] (event) Branch Alcohol intake 2020-12-23 2020-12-23 Current [facility] 00:00:00 00:00:00 non-drinker of [facility] alcohol [place] (finding) Tobacco use and 2018-08-08 2018-08-08 Never used Universit y of exposure 00:00:00 00:00:00 [facility] Sex Assigned At [birth year] Universit y of 00:00:00 00:00:00 [facility] Smoking Status Start Date Stop Date Source Never smoker [facility] Medications Ordered Filled Start Stop Current Ordering Indication Dosage Frequency Signature Comments Components Source Medication Medication Date Date Medication? Clinician (SIG) Name Name don Yes [id number] 5mL Take 5 mL Univers mine-pseudo 8-10 by mouth 4 it y of ephedrine-D 00:00: (four) Jenna Espinoza (BROMFED 00 times Medical DM) 2-30-10 daily as Bran ch mg/5 mL needed for syrup Cough. methylPREDN Yes [id number] Take by Univers ISolone 4 8-10 mouth ity of mg tablets 00:00: SEE-INSTRU [place] 00 CTIONS. Medical follow Branch package directions bromphenira Yes [id number] 5mL Take 5 mL Univers mine-pseudo 8-10 by mouth 4 it y of ephedrine-D 00:00: (four) Jenna Espinoza (BROMFED 00 times Medical DM) 2-30-10 daily as Bran ch mg/5 mL needed for syrup Cough. methylPREDN Yes [id number] Take by Univers ISolone 4 8-10 mouth ity of mg tablets 00:00: SEE-INSTRU [place] 00 CTIONS. Medical follow Branch package directions bromphenira Yes [id number] 5mL Take 5 mL Univers mine-pseudo 8-10 by mouth 4 it y of ephedrine-D 00:00: (four) Jenna Espinoza (BROMFED 00 times Medical DM) 2-30-10 daily as Bran ch mg/5 mL needed for syrup Cough. methylPREDN Yes [id number] Take by Univers ISolone 4 8-10 mouth [...] capsule 3-20 (two) ity of 00:00: times [place] 00 daily. Medical Branch Immunizations Ordered Immunization Filled Immunization Date Status Commen ts Source Name Name Meningococcal 2020-04-04 Completed University of Polysaccharide 00:00:00 [place] Medi jeremy (groups A, C, Y and Branc h W-135) conjugate vaccine (MCV4P) Influenza Virus 2020-04-04 Completed Universit y of Vaccine Quad .5 mL IM 00:00:00 [place] as Medical 6+ MO Branch Meningococcal 2020-04-04 Completed University of Polysaccharide 00:00:00 [place] Medi jeremy (groups A, C, Y and Branc h W-135) conjugate vaccine (MCV4P) Influenza Virus 2020-04-04 Completed Universit y of Vaccine Quad .5 mL IM 00:00:00 [facility] as Medical 6+ MO Branch Meningococcal 2020-04-04 Completed University of Polysaccharide 00:00:00 [place] Medi jeremy (groups A, C, Y and Branc h W-135) conjugate vaccine (MCV4P) Influenza Virus 2020-04-04 Completed Universit y of Vaccine Quad .5 mL IM 00:00:00 [facility] as Medical 6+ MO Branch HPV9 2018-08-08 Completed University of 00:00:00 [facility] Branch HPV9 2018-08-08 Completed University of 00:00:00 [facility] Branch HPV9 2018-08-08 Completed University of 00:00:00 [facility] Branch HPV9 2018-04-11 Completed University of 00:00:00 [facility] Influenza Virus 2018-04-11 Completed Universit y of Vaccine Quad ID [id number] 00:00:00 Yared as Medical YRS Branch HPV9 2018-04-11 Completed University of 00:00:00 [facility] Influenza Virus 2018-04-11 Completed Universit y of Vaccine Quad ID [id number] 00:00:00 Y[facility] as Medical YRS Branch HPV9 2018-04-11 Completed University of 00:00:00 [facility] Influenza Virus 2018-04-11 Completed Universit y of Vaccine Quad ID [id number] 00:00:00 Yared as Medical YRS Branch HPV9 2018-02-07 Completed University of 00:00:00 [facility] Menhibrix (HIB,MEN 2018-02-07 Completed Univer sity of CY-TT) 00:00:00 [facility] HPV9 2018-02-07 Completed University of 00:00:00 [facility] Menhibrix (HIB,MEN 2018-02-07 Completed Univer sity of CY-TT) 00:00:00 [facility] HPV9 2018-02-07 Completed University of 00:00:00 [facility] Menhibrix (HIB,MEN 2018-02-07 Completed Univer sity of CY-TT) 00:00:00 [facility] Menhibrix (HIB,MEN 2018-01-05 Completed Univer sity of CY-TT) 00:00:00 [facility] Menhibrix (HIB,MEN 2018-01-05 Completed Univer sity of CY-TT) 00:00:00 [facility] Menhibrix (HIB,MEN 2018-01-05 Completed Univer sity of CY-TT) 00:00:00 [facility] TDAP (ADACEL) VACCINE 2013-12-14 Completed Uni versity of 00:00:00 [facility] Meningococcal 2013-12-14 Completed University of Polysaccharide 00:00:00 [place] Medi jeremy (groups A, C, Y and Branc h W-135) conjugate vaccine (MCV4P) TDAP (ADACEL) VACCINE 2013-12-14 Completed Uni versity of 00:00:00 [facility] Meningococcal 2013-12-14 Completed University of Polysaccharide 00:00:00 [place] Medi jeremy (groups A, C, Y and Branc h W-135) conjugate vaccine (MCV4P) TDAP (ADACEL) VACCINE 2013-12-14 Completed Uni versity of 00:00:00 [facility] Meningococcal 2013-12-14 Completed University of Polysaccharide 00:00:00 [place] Medi jeremy (groups A, C, Y and [...] 2008-06-05 Completed Univ ersity of Formulation 00:00:00 [facility] Typhoid, Unspecified 2008-06-05 Completed Univ ersity of Formulation 00:00:00 [facility] Typhoid, Unspecified 2008-06-05 Completed Univ ersity of Formulation 00:00:00 [facility] DTAP 2005-05-13 Completed University of 00:00:00 [facility] MMR 2005-05-13 Completed University of 00:00:00 [facility] Polio (IPV/OPV) 2005-05-13 Completed Universit y of 00:00:00 [facility] DTAP 2005-05-13 Completed University of 00:00:00 [facility] MMR 2005-05-13 Completed University of 00:00:00 [facility] Polio (IPV/OPV) 2005-05-13 Completed Universit y of 00:00:00 [facility] DTAP 2005-05-13 Completed University of 00:00:00 [facility] MMR 2005-05-13 Completed University of 00:00:00 [facility] Polio (IPV/OPV) 2005-05-13 Completed Universit y of 00:00:00 [facility] DTAP 2002-11-14 Completed University of 00:00:00 [facility] DTAP 2002-11-14 Completed University of 00:00:00 [facility] DTAP 2002-11-14 Completed University of 00:00:00 [facility] MMR 2002-08-07 Completed University of 00:00:00 [facility] MMR 2002-08-07 Completed University of 00:00:00 [facility] MMR 2002-08-07 Completed University of 00:00:00 [facility] DTAP 2001 Completed University of 00:00:00 [facility] HIB 4 Dose Schedule 2000 Completed Unive rsity of 00:00:00 [facility] Hep B, Adol or Pedi 2001 Completed Unive rsity of Dosage 00:00:00 [facility] Polio (IPV/OPV) 2000 Completed Universit y of 00:00:00 [facility] DTAP 2001 Completed University of 00:00:00 [facility] HIB 4 Dose Schedule 2000 Completed Unive rsity of 00:00:00 [facility] Hep B, Adol or Pedi 2000 Completed Unive rsity of Dosage 00:00:00 [facility] Polio (IPV/OPV) 2000 Completed Universit y of 00:00:00 [facility] DTAP 2001 Completed University of 00:00:00 [facility] HIB 4 Dose Schedule 2001 Completed Unive rsity of 00:00:00 [place] [facility] Hep B, Adol or Pedi 2001 Completed Unive rsity of Dosage 00:00:00 [facility] Polio (IPV/OPV) 2001 Completed Universit y of 00:00:00 [facility] Branch DTAP 2001 Completed University of 00:00:00 [facility] HIB 4 Dose Schedule 2001 Completed Unive rsity of 00:00:00 [facility] Branch Hep B, Adol or Pedi 2001 Completed Unive rsity of Dosage 00:00:00 [facility] Polio (IPV/OPV) 2001 Completed Universit y of 00:00:00 [facility] DTAP 2001 Completed University of 00:00:00 [facility] HIB 4 Dose Schedule 2001 Completed Unive rsity of 00:00:00 [facility] Branch Hep B, Adol or Pedi 2001 Completed Unive rsity of Dosage 00:00:00 [facility] Polio (IPV/OPV) 2001 Completed Universit y of 00:00:00 [facility] DTAP 2001 Completed University of 00:00:00 [facility] HIB 4 Dose Schedule 2001 Completed Unive rsity of 00:00:00 [facility] Branch Hep B, Adol or Pedi 2001 Completed Unive rsity of Dosage 00:00:00 [facility] Polio (IPV/OPV) 2001 Completed Universit y of 00:00:00 [facility] DTAP 2001 Completed University of 00:00:00 [facility] HIB 4 Dose Schedule 2001 Completed Unive rsity of 00:00:00 [place] [facility] Hep B, Adol or Pedi 2001 Completed Unive rsity of Dosage 00:00:00 [facility] Polio (IPV/OPV) 2001 Completed Universit y of 00:00:00 [facility] Branch DTAP 2001 Completed University of 00:00:00 [facility] HIB 4 Dose Schedule 2001 Completed Unive rsity of 00:00:00 [facility] Hep B, Adol or Pedi 2001 Completed Unive rsity of Dosage 00:00:00 [facility] Polio (IPV/OPV) 2001 Completed Universit y of 00:00:00 [facility] DTAP 2001 Completed University of 00:00:00 [facility] HIB 4 Dose Schedule 2001 Completed Unive rsity of 00:00:00 [facility] Hep B, Adol or Pedi 2001 Completed Unive rsity of Dosage 00:00:00 [facility] Polio (IPV/OPV) 2001 Completed Universit y of 00:00:00 [facility] Typhoid, Unspecified 2001 Completed Univ ersity of Formulation 00:00:00 [facility] Pneumococcal 7 2001 Completed University of Conjugate, PCV7 00:00:00 [place] [facility] ical (Prevnar7) Branch Typhoid, Unspecified 2001 Completed Univ ersity of Formulation 00:00:00 [facility] Pneumococcal 7 2001 Completed University of Conjugate, PCV7 00:00:00 [facility] ical (Prevnar7) Branch Typhoid, Unspecified 2001 Completed Univ ersity of Formulation 00:00:00 [facility] Pneumococcal 7 2001 Completed University of Conjugate, PCV7 00:00:00 [facility] ical (Prevnar7) [place] Procedures Procedure Date / Time Performed Performing Clinician [facility] e ASSIGNMENT OF BENEFITS 2021-05-19 16:29:27 Doctor Unassigned, No [facility] Branch Encounters Start End Encounter Admission Attending Care Care Encounter Source Date/Time Date/Time Type Type Clinicians Facility Department ID 2021-05-20 2021-05-20 Telephone LIZZIE Leong [id number] [facility] 00:00:00 00:00:00 [facility] [place] [id number] [id number] Y[facility] as [id number] [place] [address] Branch 2021-05-19 2021-05-19 Outpatient Juan Luis GUTIERREZ [facility] [id number] Univers 10:20:00 11:01:55 OREN diaz [facility] 2021-05-19 2021-05-19 Laboratory Only, Ang Db Test [facility] [id number] Univers 10:20:00 10:35:00 Only Oren Gutierrez [id number] ity of [place] [id number] Yared as FRACISCO?BLEA [id number] Mt dical [address] MEDICAL OFFICE BUILDING 2021-05-19 2021-05-19 Orders Doctor LIZZIE [id number] Univers 00:00:00 00:00:00 Only Unassigned, CELENA [id number] ity of [place] [facility] [id number] Yared as [id number] [address] 2020-12-23 2020-12-23 Outpatient Juan Luis CRUZ [facility] [id number] Univers 10:30:00 10:30:00 JOAQUIN diaz [facility] 2020-04-04 2020-04-04 Outpatient Juan Luis CRUZ [facility] [id number] Univers 13:30:00 13:30:00 JOAQUIN diaz [facility] 2019-08-11 2019-08-11 Outpatient Juan Luis CHILDERS [facility] [id number] Univers 14:30:00 14:30:00 MICA coulter [facility] 2019-05-01 2019-05-01 Outpatient Juan Luis RODRIGUEZ [facility] [id number] Univers 12:20:00 13:08:24 ANDRESSA coulter [facility] Results This patient has no known results.
--- NOTE | 2022-12-28 21:08 | ER ---
Nurse's Notes [facility] Name: Best Rangel Age: 22 yrs Sex: Male : 2000 Arrival Date: 12/28/2022 Time: 20:33 Bed IW3 Private MD: Diagnosis: Allergic urticaria Presentation: 12/28 20:55 Chief complaint: Patient states: I'm having an allergic reaction, it's on the back of vc1 my neck, in my groin area and under my arms. 20:55 Coronavirus screen: Vaccine status: Patient reports being unvaccinated. Client denies vc1 travel out of the [place] in the last 14 days. At this time, the client does not indicate any symptoms associated with coronavirus-19. Ebola Screen: Patient negative for fever greater than or equal to 101.5 degrees Fahrenheit, and additional compatible Ebola Virus Disease symptoms Patient denies exposure to infectious person. Patient denies travel to an Ebola-affected area in the 21 days before illness onset. No symptoms or risks identified at this time. Onset: The symptoms/episode began/occurred suddenly, 1 hour(s) ago. Anaphylaxis evaluation, no signs or symptoms of anaphylaxis were noted. Initial Sepsis Screen: Does the patient meet any 2 criteria? No. Patient's initial sepsis screen is negative. Does the patient have a suspected source of infection? No. Patient's initial sepsis screen is negative. Risk Assessment: Do you want to hurt yourself or someone else? Patient reports no desire to harm self or others. Onset of symptoms was December 28, 2022 at 20:00. 20:55 Method Of Arrival: Ambulatory vc1 20:55 Acuity: WILLY 3 vc1 20:55 Onset of symptoms was December 28, 2022. vc1 Triage Assessment: 20:55 General: Appears in no apparent distress. uncomfortable, Behavior is calm, cooperative, vc1 appropriate for age. Pain: Denies pain. EENT: No deficits noted. No signs and/or symptoms were reported regarding the EENT system. Neuro: Level of Consciousness is awake, alert, obeys commands, Oriented to person, place, time, situation. Cardiovascular: No deficits noted. Respiratory: Airway is patent Respiratory effort is even, unlabored, Respiratory pattern is regular, symmetrical, Denies shortness of breath labored breathing. GI: No deficits noted. No signs and/or symptoms were reported involving the gastrointestinal system. : No deficits noted. No signs and/or symptoms were reported regarding the genitourinary system. Derm: Rash noted that is itchy, urticaria, Reports itching. Musculoskeletal: No deficits noted. No signs and/or symptoms reported regarding the musculoskeletal system. Historical: - Allergies: 22:47 Medrol; hives on 12/28/22; vc1 - Home Meds: 22:46 None [Active]; vc1 - PMHx: 22:46 None; vc1 - PSHx: 22:46 None; vc1 - Immunization history:: Client reports having NOT received the Covid vaccine. - Social history:: Smoking status: Patient denies any tobacco usage or history of. Screenin:55 [facility] ED Fall Risk Assessment (Adult) History of falling in the last 3 months, vc1 including since admission No falls in past 3 months (0 pts) Confusion or Disorientation No (0 pts) Intoxicated or Sedated No (0 pts) Impaired Gait No (0 pts) Mobility Assist Device Used No (0 pt) Altered Elimination No (0 pt) Score/Fall Risk Level 0 - 2 = Low Risk Oriented to surroundings, Maintained a safe environment, Educated pt \T\ family on fall prevention, incl call for assistance when getting out of bed. Abuse screen: Denies threats or abuse. Nutritional screening: No deficits noted. Tuberculosis screening: No symptoms or risk factors identified. Assessment: 20:55 Respiratory: Airway is patent Respiratory effort is even, unlabored, Breath sounds are vc1 clear. Vital Signs: 20:55 BP 124 / 68; Pulse 89; Resp 15; Temp 97.9; Pulse Ox 98% ; Weight 74.84 kg; Height 6 ft. vc1 0 in. ; Pain 0/10; 20:55 Pain 0/10; vc1 20:55 Body Mass Index 22.38 (74.84 kg, 182.88 cm) vc1 20:55 Pain Scale: Adult vc1 20:55 Pain Scale: Adult vc1 ED Course: 20:36 Patient arrived in ED. ag3 20:50 [facility]ian[facility] Rodrigues [facility]C [facility]. kb 20:50 Jamie Ramirez MD is Attending Physician. kb 20:55 Arm band placed on right wrist. vc1 20:55 Patient has correct armband on for positive identification. vc1 21:06 Provided Education on: Stop taking medrol pack, continue clindamycin add in pepcid.. vc1 21:06 No provider procedures requiring assistance completed. Patient did not have IV access vc1 during this emergency room visit. 22:46 Triage completed. vc1 Administered Medications: 21:06 Drug: diphenhydrAMINE PO 25 mg Route: PO; vc1 21:07 Follow up: Response: Medication administered at discharge. vc1 21:07 Drug: Famotidine PO 20 mg Route: PO; vc1 21:07 Follow up: Response: Medication administered at discharge. vc1 21:08 Follow up: Response: Medication administered at discharge. vc1 Medication: 22:50 VIS not applicable for this client. vc1 Outcome: 21:01 Discharge ordered by . kb 21:06 Discharged to home ambulatory, with family. vc1 21:06 Condition: good 21:06 Discharge instructions given to patient, Instructed on discharge instructions, follow up and referral plans. medication usage, Demonstrated understanding of instructions, follow-up care, medications, Prescriptions given X 1. 21:07 Patient left the ED. vc1 Signatures: Vianney Rodrigues, FREEZER OPERATOR-C FREEZER OPERATOR-Ckb Ronel Gonzalez ag3 Ruby Chen RN RN vc1 Corrections: (The following items were deleted from the chart) 22:48 22:46 Allergies: No Known Allergies; vc1 vc1
[2022-12-28] MEDS ORDERED: FAMOTIDINE 20 MG TAB ONE (21:14)
[2022-12-28] MEDS ORDERED: DIPHENHYDRAMINE 25 MG TAB/CAP ONE (21:14)
--- NOTE | 2022-12-29 21:07 | EDPHYS ---
Physician Documentation [facility] Name: Best Rangel Age: 22 yrs Sex: Male : 2000 Arrival Date: 12/28/2022 Time: 20:33 Bed IW3 Private MD: ED Physician Jamie Ramirez HPI: 12/28 23:07 This 22 yrs old Male presents to ER via Ambulatory with complaints of Rash, Allergic kb Reaction. 23:07 The patient's rash thought to be caused by medication. The rash is located on the neck kb and pelvis and buttocks. The rash can be described as urticarial. Onset: The symptoms/episode began/occurred 1 hour(s) ago. Associated signs and symptoms: Pertinent positives: itching. Severity of symptoms: At their worst the symptoms were mild in the emergency department the symptoms are unchanged. The patient has not experienced similar symptoms in the past. The patient has not recently seen a physician. Pt reports he started steroids and clindamycin today for a tooth infection. 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 States he has had clindamycin in the past so he believes the rash is due to the steroids. Historical: - Allergies: 22:47 Medrol; hives on 12/28/22; vc1 - Home Meds: 22:46 None [Active]; vc1 - PMHx: 22:46 None; vc1 - PSHx: 22:46 None; vc1 - Immunization history:: Client reports having NOT received the Covid vaccine. - Social history:: Smoking status: Patient denies any tobacco usage or history of. ROS: 23:06 Constitutional: Negative for fever, chills, and weight loss. kb 23:06 Skin: Positive for rash, of the buttocks, pelvis and neck. 23:06 All other systems are negative. Exam: 23:06 Constitutional: This is a well developed, well nourished patient who is awake, alert, kb and in no acute distress. Head/Face: Normocephalic, atraumatic. ENT: Moist Mucous membranes Cardiovascular: Regular rate and rhythm with a normal S1 and S2. No gallops, murmurs, or rubs. No pulse deficits. Respiratory: Respirations even and unlabored. No increased work of breathing. Talking in full sentences Abdomen/GI: Soft, non-tender. No distention MS/ Extremity: Pulses equal, no cyanosis. Neurovascular intact. Full, normal range of motion. Neuro: Awake and alert, GCS 15, oriented to person, place, time, and situation. Moves all extremities. Normal gait. 23:06 Skin: rash a mild rash is noted, consistent with urticaria, on the neck and pelvis and buttocks. Vital Signs: 20:55 BP 124 / 68; Pulse 89; Resp 15; Temp 97.9; Pulse Ox 98% ; Weight 74.84 kg; Height 6 ft. vc1 0 in. ; Pain 0/10; 20:55 Pain 0/10; vc1 20:55 Body Mass Index 22.38 (74.84 kg, 182.88 cm) vc1 20:55 Pain Scale: Adult vc1 20:55 Pain Scale: Adult vc1 MDM: 20:54 Patient medically screened. 23:07 Data reviewed: vital signs, nurses notes. 23:08 Differential diagnosis: impetigo, allergic reaction, parasite infection, urticaria, kb contact dermatitis. Counseling: I had a detailed discussion with the patient and/or guardian regarding: the historical points, exam findings, and any diagnostic results supporting the discharge/admit diagnosis, the need for outpatient follow up, a family practitioner, to return to the emergency department if symptoms worsen or persist or if there are any questions or concerns that arise at home. Administered Medications: 21:06 Drug: diphenhydrAMINE PO 25 mg Route: PO; vc1 21:07 Follow up: Response: Medication administered at discharge. vc1 21:07 Drug: Famotidine PO 20 mg Route: PO; vc1 21:07 Follow up: Response: Medication administered at discharge. vc1 21:08 Follow up: Response: Medication administered at discharge. vc1 Disposition: 23:49 Chart complete. 12/29 00:42 Co-signature as Attending Physician, Jamie Ramirez MD I agree with the assessment sp4 and plan of care. I reviewed the patient's care provided by the Advanced Practice Provider and agree with the diagnosis and treatment plan. Disposition Summary: 12/28/22 21:01 Discharge Ordered Location: Home kb Condition: Stable kb Diagnosis - Allergic urticaria kb Followup: kb - With: Emergency Department - When: As needed - Reason: Worsening of condition Followup: kb - With: Private Physician - When: 2 - 3 days - Reason: Recheck today's complaints, Continuance of care, Re-evaluation by your physician Discharge Instructions: - Discharge Summary Sheet kb - Hives, [id number] kb Forms: - Medication Reconciliation Form kb - Thank You Letter kb - Antibiotic Education kb - Prescription Opioid Use kb - Patient Portal Instructions kb - Leadership Thank You Letter kb Prescriptions: - Pepcid 20 mg Oral Tablet - take 1 tablet by ORAL route every 12 hours for 5 days; 10 tablet; Refills: 0, kb Product Selection Permitted Signatures: Vianney Rodrigues, DELFINA-C CLAIMS ACCOUNT SPECIALIST-Ruby Sutton RN RN vc1 Jamie Ramirez MD MD sp4 Corrections: (The following items were deleted from the chart) 12/28 22:48 22:46 Allergies: No Known Allergies; vc1 vc1
== END 2022-12-28 21:07 | disposition home or self-care (01) ==
LOC: ER 20:33
DX: L50.0 Allergic urticaria (principal)